=== PATIENT | female | born 1970 | race Caucasian/White ===

== ENCOUNTER 2017-04-26 11:16 | Emergency (ER) | payer MEDICAID ==
[2017-04-26 12:51] VITALS: BP 141/89
== END 2017-04-26 12:51 | disposition home or self-care (01) ==
LOC: ED 11:16
DX: M77.8 Other enthesopathies, not elsewhere classified (principal); E11.9 Type 2 diabetes mellitus without complications
CPT/HCPCS: J1885; Q0092

== ENCOUNTER 2018-01-04 19:50 | Emergency (ER) | payer MEDICAID ==
[~2018-01-04] VITALS: Ht 152.4 cm; Wt 50.8 kg
[2018-01-04 19:56] VITALS: Ht 152.4 cm; Wt 50.8 kg
[2018-01-04 21:17] VITALS: BP 128/78
== END 2018-01-04 21:17 | disposition home or self-care (01) ==
LOC: ED 19:50
DX: M25.532 Pain in left wrist (principal); R03.0 Elevated blood-pressure reading, without diagnosis of hypertension; E11.9 Type 2 diabetes mellitus without complications
CPT/HCPCS: J1885